=== PATIENT | male | born 1960 | race Caucasian/White ===

== ENCOUNTER → 2019-04-05 | Outpatient (CLI) | payer SELFPAY ==
[~2019-04-05] MED LIST: ACET500T73 PO; AMLO10TA8 PO; AMLO5TAB4 PO; AMOX1TAB63 PO; ATOR20TA PO; CALC500T10 PO; CARV12.5 PO; CEFU500T49 PO; CITA10TA8 PO; CLON0.1T PO; Cilostazol PO; DAPA10TA PO; DIAZ5TAB4 PO; DOCU-123 PO; FERR325T15 PO; FURO-81 PO; GABA300C PO; GABA300C10 PO; GABA400C10 PO; GLYB2.5T2 PO; GLYB5TAB3 PO; HYDR-3193 PO; HYDR-3469 PO; HYDR-3470 PO; INSU100V11 SUBCUT; INSU100V13 SQ; ISOS30TA4 PO; LISI40TA PO; METF10007 PO; METF500T PO; METO100T7 PO; METO50TA4 PO; MULT1TAB77 PO; NPH,100I4 SQ; POTA10TA6 PO; SERT50TA PO; SULF1TAB24 PO; TAMS-14 PO; TORS20TA PO
== END | disposition home or self-care (01) ==
LOC: LAB 15:09
PROVIDERS: ATTEND Internal Medicine
DX: L03.90 Cellulitis, unspecified (principal)
CPT/HCPCS: 87070; 87077; 87186